=== PATIENT | female | born 1975 | race Caucasian/White ===

== ENCOUNTER 2019-01-24 10:43 | Emergency (ER) | payer BC ==
[~2019-01-24] VITALS: Wt 78.0 kg
[2019-01-24] MEDS ORDERED: IBUP-1542 PO (12:11)
[2019-01-24 12:18] VITALS: BP 117/69; PULSE 69; RESP 18
--- NOTE | 2019-01-24 12:36 | ERD ---
ER Documentation Chief Complaint Chief Complaint RIGHT ANKLE PAIN HPI 43-year-old female presents complaint of right ankle pain since last Erick night. Patient states that she was walking downstairs when she symptoms sprain her ankle. Patient states she has been able to walk on the ankle but it hurts to do so. Patient denies any medications. Patient denies any numbness, tingling, weakness. ROS All systems reviewed and are negative except as per history of present illness. Medications Home Meds Active Scripts Ibuprofen* (Motrin*) 600 Mg Tab, 600 MG PO Q6, #30 TAB Prov:JOSE LOVE 01/24/19 Allergies Allergies: Coded Allergies: naproxen (Verified Allergy, Unknown, throat swollen, 01/24/19) PMhx/Soc Medical and Surgical Hx: pt denies Medical Hx Hx Alcohol Use: No Hx Substance Use: No Hx Tobacco Use: No FmHx Family History: No diabetes, No coronary disease, No other Physical Exam Vitals Vital Signs Date Temp Pulse Resp B/P (MAP) Pulse Ox O2 O2 Flow FiO2 Time Delivery Rate 01/24/19 98.3 69 18 117/69 99 Room Air 12:18 (85) 01/24/19 98.1 78 18 122/78 99 10:52 (93) Physical Exam Const: No acute distress Head: Atraumatic Eyes: Normal Conjunctiva ENT: Normal External Ears, Nose and Mouth. Neck: Full range of motion. No meningismus. Resp: Clear to auscultation bilaterally Cardio: Regular rate and rhythm, no murmurs Abd: Soft, non tender, non distended. Normal bowel sounds Skin: No petechiae or rashes Back: No midline or flank tenderness Ext: No cyanosis, or edema Neur: Awake and alert Psych: Normal Mood and Affect Right ankle: Ankles nonedematous erythematous with mild tenderness palpation over the lateral medial malleolus. There are no bony deformities noted. There is full range of motion. Sensation and toes range of motion is intact. All compartments are soft and warm. Knee is nontender to palpation in all quadrants. Tib-fib is nontender to palpation. Results 24 hrs Laboratory Tests Test 01/24/19 11:38 POC Beta HCG, Qualitative NEGATIVE Procedures/MDM DIAGNOSTIC IMAGING REPORT Patient: YORDAN MACK : 1975 Age: 43 Sex: F [id number] DOS: 01/24/19 1120 Ordering MD: JOSE LOVE Location: [facility] Room/Bed: PROCEDURE: XR Right Ankle CLINICAL INDICATION: Trauma, pain TECHNIQUE: Standard 3 view radiographs were submitted. COMPARISON: None FINDINGS: Osseous structures: Well mineralized and intact with no fracture or destructive process identified. Joint spaces: Well maintained with no significant erosions or spurring evident. Soft tissues: There is soft tissue swelling about the lateral malleolus suspicious for a sprain. IMPRESSION: Right ankle sprain. Physician Zita Date Time Electronically viewed and signed by Physician Zita on 01/24/2019 11:47 RH/ CC: JOSE LOVE [id number] MDM: X-rays were negative for fracture but showed ankle sprain. Patient was given crutches and Martín wrap in the ED. I have low suspicion for neurovascular compromise, compartment syndrome, fracture, osteomyelitis, septic joint, DVT, or other emergent condition. Patient advised to follow-up with Ortho pain does not resolve. At this time, patient is stable for discharge and outpatient management. I have instructed the patient to follow-up with his/her primary care physician in 1-2 days. I have discussed with the patient the possibility of needing to see a specialist for further workup and imaging studies if symptoms persist. I have instructed the patient to promptly return to the ER for any new or worsening symptoms including but not limited to increased pain, fever, nausea, vomiting, weakness or LOC. The patient and/or family expressed understanding of and agreement with this plan. All questions were answered. Home care instructions were provided. DISCLAIMER: Inadvertent spelling and grammatical errors are likely due to EHR/dictation software use and do not reflect on the overall quality of patient care. Also, please note that the electronic time recorded on this note does not necessarily reflect the actual time of the patient encounter. Departure Diagnosis: Primary Impression: Ankle injury Additional Impression: Ankle sprain Condition: Stable Patient Instructions: What Are Ankle Sprains?, Treating Ankle Sprains, Self- Care for Strains and Sprains Additional Instructions: FOLLOW UP WITH YOUR PRIMARY CARE PHYSICIAN TOMORROW.Return to this facility if you are not improving as expected. JOSE LOVE Jan 24, 2019 12:31
== END 2019-01-24 12:20 | disposition home or self-care (01) ==
LOC: FTE 10:43
DX: S93.401A Sprain of unspecified ligament of right ankle, initial encounter (principal); X58.XXXA Exposure to other specified factors, initial encounter; Y92.9 Unspecified place or not applicable
CPT/HCPCS: 73590; 73630; 81025